=== PATIENT | male | born 1930 | race Caucasian/White ===

== ENCOUNTER 2017-01-03 06:28 | Day surgery (SDC) | payer OTHER ==
[2016-12-31 11:01] LABS: HEMOGLOBIN 15.6 g/dL (13.7-18.0); WHITE BLOOD COUNT 5.5 x10^3/uL (3.4-10)
[2016-12-31 11:05] LABS: BLOOD UREA NITROGEN 26 mg/dL (7-18)
[~2017-01-03] VITALS: Ht 193 cm; Wt 63.6 kg
[~2017-01-03 06:28] MED LIST: AMPI500C2 PO; ATOR20TA PO; FURO-92 PO; MEXI200C PO; POTA10TA11 PO; SOTA160T PO; WARF2TAB PO; XARELTO
[2017-01-03] MEDS ORDERED: SODIUM CHLORIDE 0.9% 1,000 ML IV SCH (06:45)
[2017-01-03] MEDS ORDERED: MIDAZOLAM 1 MG/ML, 5ML ONE (07:06)
[2017-01-03] MEDS ORDERED: FENTANYL PF 100 MCG/2ML ONE (07:06)
[2017-01-03] MEDS ORDERED: CEFAZOLIN PMX 1GM/50ML 50 ML ONE (07:06)
[2017-01-03] MEDS ORDERED: LIDOCAINE 2%, 20ML ONE (07:06)
[2017-01-03] MEDS ORDERED: CEFAZOLIN 1,000 MG ONE ×2 (07:07)
== END 2017-01-03 09:15 | disposition home or self-care (01) ==
LOC: CACL 06:28
PROVIDERS: ATTEND Internal Medicine Cardiovascular Disease
DX: F01.50 Vascular dementia, unspecified severity, without behavioral disturbance, psychotic disturbance, mood disturbance, and anxiety (principal); I25.5 Ischemic cardiomyopathy; Z53.8 Procedure and treatment not carried out for other reasons
CPT/HCPCS: 33231; 36415; 80048; 85025; 85610; 93005; J0690; J2250; J3010; J3490